=== PATIENT | male | born 1970 | race Caucasian/White ===

== ENCOUNTER 2020-03-29 18:53 | Emergency (ER) | payer MEDICAID ==
[~2020-03-29] VITALS: Ht 177.8 cm; Wt 69.9 kg
[2020-03-29 19:29] LABS: BASOPHILS % (AUTO) 1 % (0-1); EOSINOPHILS % (AUTO) 6 % (1-7); LYMPHOCYTES % (AUTO) 25 % (22-44); MEAN CORPUSCULAR HEMOGLOBIN 29.7 pg (27.5-34.5); MEAN CORPUSCULAR HGB CONC 33.3 g/dL (33.2-36.2); MEAN PLATELET VOLUME 7.6 fL (7.4-10.4); MONOCYTES % (AUTO) 8 % (2-9); NEUTROPHILS % (AUTO) 60 % (42-75); PLATELET COUNT 273 x10^3/uL (130-400); RED BLOOD COUNT 4.83 x10^6/uL (4.38-5.82)
[2020-03-29 19:30] LABS: MD NO
[2020-03-29] MEDS ORDERED: SODIUM CHLORIDE FLUSH 10ML SYR IVF ONE (19:30)
[2020-03-29 19:38] LABS: ANION GAP 3 mmol/L (5-15); CALCIUM 9.1 mg/dL (8.5-10.1); CHLORIDE 109 mmol/L (98-107)
[2020-03-29 19:42] LABS: ALANINE AMINOTRANSFERASE 19 U/L (12-78); ALKALINE PHOSPHATASE 80 U/L (45-117); BILIRUBIN,TOTAL 1.2 mg/dL (0.2-1.0); CREATININE 1.02 mg/dL (0.7-1.3); TOTAL PROTEIN 7.3 g/dL (6.4-8.2)
[2020-03-29 20:43] VITALS: BP 116/71
--- NOTE | 2020-03-29 20:44 | NUR ---
PT PROVIDED UA CUP IN TRIAGE. PT BROUGHT BACK INTO TRAIGE FOR VITAL SIGNS.
--- NOTE | 2020-03-29 20:49 | NUR ---
URINE SENT TO LAB FROM TRIAGE.
[2020-03-29 21:02] LABS: MICROSCOPIC INDICATED
--- NOTE | 2020-03-29 21:10 | NUR ---
ASSUMED CARE OF PT FROM LOBBY AT THIS TIME. MD AT BEDSIDE.
--- NOTE | 2020-03-29 21:28 | NUR ---
PT C/O URETHRAL PAIN WHEN VOIDING FOR 9 MONTHS AND ON FLOMAX PER PT TO HELP WITH THAT SYMPTOM. PT REPORTS BLOOD IN URINE TODAY AT 2 AM WITH HX OF SAME ONE WEEK AGO AT MD OFFICE BUT WAS OCCULT BLOOD. PT HAS HX OF KIDNEY STONES.
[2020-03-29] MEDS ORDERED: TAMS-11 PO (21:32)
--- NOTE | 2020-03-29 21:58 | NUR ---
REPORT TO BREE Sharif RN.
--- NOTE | 2020-03-29 22:19 | NUR ---
ASSUMED CARE OF PATIENT. REPORT GIVEN FROM ROBERT BLEDSOE. PT IN CT.
--- NOTE | 2020-03-29 23:09 | NUR ---
Patient/Caregiver given discharge instructions and they have confirmed that they understand the instructions. Patient ambulatory with steady gait.
== END 2020-03-29 23:14 | disposition home or self-care (01) ==
LOC: ED 20:59
DX: R31.0 Gross hematuria (principal); N20.2 Calculus of kidney with calculus of ureter; R31.9 Hematuria, unspecified
CPT/HCPCS: 36415; 74176; 80053; 81001; 85025; 99284